=== PATIENT | male | born 1965 | race Caucasian/White ===

== ENCOUNTER 2023-10-05 03:58 | Emergency (ER) | payer OTHER, SELFPAY ==
[2023-10-05 04:07] VITALS: BP 153/119; PULSE 118; RESP 18; TEMP 36.7; O2SAT 97; BMI 24.4
--- NOTE | 2023-10-05 04:17 | XRR_ITS ---
PROCEDURE INFORMATION: Exam: XR Chest Exam date and time: 10/05/2023 4:22 AM Age: 58 years old Clinical indication: Chest wall pain; Additional info: Cxp TECHNIQUE: Imaging protocol: Radiologic exam of the chest. Views: 1 view. COMPARISON: No relevant prior studies available. FINDINGS: Lungs: Unremarkable. No consolidation. Pleural spaces: Unremarkable. No pleural effusion. No pneumothorax. Heart/Mediastinum: Unremarkable. No cardiomegaly. Bones/joints: Unremarkable. XR/XR chest 1V portable [id number] IMPRESSION: No acute cardiopulmonary findings.
--- NOTE | 2023-10-05 04:18 | ECG_ITS ---
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 Measurements Intervals Pratt Rate: 104 P: 61 OK: 135 QRS: 25 QRSD: 85 T: 39 QT: 325 QTc: 428 Interpretive Statements SINUS TACHYCARDIA MODERATE ST DEPRESSION [0.05+ mV ST DEPRESSION] No previous ECG available for comparison Electronically Signed On 10-05-2023 15:45:49 OPERATOR RECEPTIONIST by Vic Yates M.D. [id number]
[2023-10-05] MEDS: lidocaine 2% viscous 15 ML, aluminum-mag hydrox-simethicon 30 ML, sucralfate oral liq 1 GM PO (04:21)
[2023-10-05 04:32] LABS: Basophils # 0.1 10^3/uL (0.0-0.1); Basophils % 0.7 %; Eosinophils # 0.2 10^3/uL (0.0-0.8); Eosinophils % 2.1 %; Hematocrit 48.7 % (37-53); Lymphocytes # 2.7 10^3/uL (0.8-4.8); Lymphocytes % 31.9 %; Mean Corpuscular HGB Conc 34.3 g/dL (30-55); Mean Corpuscular Hemoglobin 30.4 pg (27-33); Mean Corpuscular Volume 88.7 fl (82-101); Mean Platelet Volume 10.4 fL (7.4-10.4); Monocytes # 0.8 10^3/uL (0.2-0.9); Monocytes % 9.6 %; Neutrophils # 4.69 10^3/uL (1.8-7.7); Neutrophils % 55.3 %; Nucleated Red Blood Cells % 0 %; Platelet Count 209 10^3/cmm (157-399); Red Blood Count 5.49 10^6/uL (3.85-5.65); Red Cell Distribution Width 12.5 % (12.1-15.1); White Blood Count 8.47 10^3/uL (3.29-11.43)
[2023-10-05 04:42] LABS: INR 0.86 (0.8-1.2)
[2023-10-05 04:43] LABS: Partial Thromboplastin Time 26.3 SECONDS (23.9-36.7)
[2023-10-05 04:49] LABS: Troponin(5th) Baseline < 6 ng/L (0-15)
[2023-10-05 04:51] LABS: Anion Gap 13.5 (5-19); Aspartate Amino Transferase 22 U/L (0-40); Blood Urea Nitrogen 17 mg/dL (8-23); Calcium 8.9 mg/dL (8.5-10.5); Carbon Dioxide 27 mmol/L (22-29); Chloride 103 mmol/L (98-107); Creatinine Clr Calc Pharmacy 73.3507; Glomerular Filtration Rate 61.8 mL/min (90-130); Glucose 197 mg/dL (65-115); Osmolality Calculated 297 mOsm/kg (285-295); Potassium 3.5 mmol/L (3.5-5.1); Sodium 140 mmol/L (136-145); Total Bilirubin 0.4 mg/dL (0.15-1.2); Total Protein 7.1 g/dL (6.6-8.7)
[2023-10-05] MEDS: aspirin 81 mg Chew Tablet 324 MG PO (04:55)
[2023-10-05 05:01] LABS: Alanine Aminotransferase 45 U/L (0-41); Albumin Level 4.1 g/dL (3.5-5.2); Alkaline Phosphatase 105 U/L (40-130); NT Pro B Type Natriuretic Pept < 36 pg/mL (0-125)
[2023-10-05 05:17] VITALS: BP 151/96; PULSE 96; RESP 16; O2SAT 93
--- NOTE | 2023-10-05 05:40 | ED_ITS ---
HPI - General Adult 2 General: Chief complaint: General Medical Stated complaint: acid reflux begining to choke Time Seen by Provider: 10/05/23 04:17 History of Present Illness: 58-year-old male presents to the emergen cy department with complaints of burning substernal chest pain. He states that he did not take his esomeprazole for 2 days and ate a greasy cheeseburger before laying down to go to sleep. He states that he started having chest discomfort that caused him to jar himself awake he states he has a stress test yearly as his father at 33 years old from a possible heart attack. He states that he has had episodes in the past where he felt like he was having heart attack and it was determined to be anxiety at that time. He denies shortness of breath, dizziness or lightheaded feeling. He states he does feel like his heart is racing at present. Associated symptoms: Reports chest pain and palpitations Review of Systems 2 General: Reports: 10 or more systems reviewed and unremarkable except in HPI and below Card: Reports: chest pain and palpitations GI: Reports: heartburn Physical Exam 2 Narrative: EXAM NARRATIVE: Constitutional: the patient appears well nourished and of normal development. Vital signs as documented. No acute distress at present. Alert and oriented-to person, place, time and situation. Head, eyes, ears, nose, mouth, throat: Normocephalic, atraumatic. Pupils-equal, round, reactive to light. No scleral icterus. Normal-appearing external ears. Normal appearing nasal turbinates, no drainage. No obvious oral lesions, posterior oropharynx without erythema or exudates. Neck: Supple, trachea is midline, no lymphadenopathy, no jugular venous distension, thyromegaly, or carotid bruits. Carotid upstrokes are brisk bilaterally. Lungs: clear to auscultation to all lung velásquez. Symmetrical rise and fall of chest, no obvious signs of increased work of breathing at present. Cardiac: Sinus tachycardia, positive S1, S2. No murmurs, rubs or gallops that I can appreciate Abdomen: Soft, non-tender to palpation, normal active bowel sounds to all quadrants. No palpable masses, no organomegaly and abdominal bruits. Extremities: 2+ pulses in the upper extremities that are equal bilaterally, 2+ pulses in the lower extremities that are equal bilaterally. Non-edematous. Moves all extremities well, sensation to all extremities are noted. Skin: Warm, dry, intact. Course 2 Vital Signs: Vital signs: Vital Signs Temperature 98.1 F 10/05/23 04:07 Pulse Rate 94 10/05/23 06:31 Respiratory Rate 16 10/05/23 06:31 Blood Pressure 159/99 10/05/23 06:31 Pulse Oximetry 94 10/05/23 06:31 Oxygen Delivery Me thod Room Air 10/05/23 04:07 [facility] - General Adult Medical Decision Making Physical exam completed and documented, I will obtain serial cardiac enzymes, serial twelve-lead EKGs, chest x-ray, CBC, CMP, urinalysis, B-type natriuretic peptide, PT/PTT/INR, and a chest x-ray. I will provide cardiac dose aspirin and nitroglycerin administration if indicated. I will also provide a GI cocktail to assist in determining his differential diagnosis to include GERD, NSTEMI, anxiety, cardiac arrhythmia. Differential Diagnosis GERD, NSTEMI, anxiety, cardiac arrhythmia Lab Data I reviewed the patient's lab results. 10/05/23 04:26 10/05/23 04:26 Radiology Impressions Chest X-Ray 10/05/23 04:17 IMPRESSION: No acute cardiopulmonary findings. Laboratory Results WBC 8.47 10^3/uL (3.29-11.43) 10/05/23 04:26 RBC 5.49 10^6/uL (3.85-5.65) 10/05/23 04:26 Hgb 16.70 g/dL (11.27-16.99) 10/05/23 04:26 Hct 48.7 % (37-53) 10/05/23 04:26 MCV 88.7 fl (82-101) 10/05/23 04:26 MCH 30.4 pg (27-33) 10/05/23 04:26 MCHC 34.3 g/dL (30-55) 10/05/23 04:26 RDW 12.5 % (12.1-15.1) 10/05/23 04:26 Plt Count 209 10^3/cmm (157-399) 10/05/23 04:26 MPV 10.4 fL (7.4-10.4) 10/05/23 04:26 Neut % (Auto) 55.3 % 10/05/23 04:26 Lymph % (Auto) 31.9 % 10/05/23 04:26 Stearns % (Auto) 9.6 % 10/05/23 04:26 Eos % (Auto) 2.1 % 10/05/23 04:26 Baso % (Auto) 0.7 % 10/05/23 04:26 Neut # (Auto) 4.69 10^3/uL (1.8-7.7) 10/05/23 04:26 Lymph # (Auto) 2.7 10^3/uL (0.8-4.8) 10/05/23 04:26 Stearns # (Auto) 0.8 10^3/uL (0.2-0.9) 10/05/23 04:26 Eos # (Auto) 0.2 10^3/uL (0.0-0.8) 10/05/23 04:26 Baso # (Auto) 0.1 10^3/uL (0.0-0.1) 10/05/23 04:26 Nucleated RBC % (auto) 0 % 10/05/23 04: Nucleated RBCs # 0.0 /100WBC 10/05/23 04:26 PT 11.90 SECONDS (12.1-14.9) L 10/05/23 04:26 INR 0.86 (0.8-1.2) 10/05/23 04:26 APTT 26.3 SECONDS (23.9-36.7) 10/05/23 04:26 Sodium 140 mmol/L (136-145) 10/05/23 04:26 Potassium 3.5 mmol/L (3.5-5.1) 10/05/23 04:26 Chloride 103 mmol/L (98-107) 10/05/23 04:26 Carbon Dioxide 27 mmol/L (22-29) 10/05/23 04:26 Anion Gap 13.5 (5-19) 10/05/23 04:26 BUN 17 mg/dL (8-23) 10/05/23 04:26 Creatinine 1.2 mg/dL (0.7-1.2) 10/05/23 04:26 GFR Calculation 61.8 mL/min (90-130) L 10/05/23 04:26 Glucose 197 mg/dL (65-115) H 10/05/23 04:26 Calculated Osmolality 297 mOsm/kg (285-295) H 10/05/23 04:26 Calcium 8.9 mg/dL (8.5-10.5) 10/05/23 04:26 Total Bilirubin 0.4 mg/dL (0.15-1.2) 10/05/23 04:26 AST 22 U/L (0-40) 10/05/23 04:26 ALT 45 U/L (0-41) H 10/05/23 04:26 Alkaline Phosphatase 105 U/L (40-130) 10/05/23 04:26 Troponin T Baseline < 6 ng/L (0-15) 10/05/23 04:26 Troponin T 120 Minute 7.35 ng/L (0-15) 10/05/23 06:35 Delta Troponin T 1.34570 ABS# (0-10) 10/05/23 06:35 NT-Pro-B Natriuret Pep < 36 pg/mL (0-125) 10/05/23 04:26 Total Protein 7.1 g/dL (6.6-8.7) 10/05/23 04:26 Albumin 4.1 g/dL (3.5-5.2) 10/05/23 04:26 Globulin 3.0 g/dL (1.3-4.6) 10/05/23 04:26 All radiology interpretation(s) finalized by discharge EKG Data EKG 1: Interpretation: Twelve-lead EKG obtained at 412 and reviewed at 412 demonstrates sinus tachycardia with a ventricular rate of 104 bpm, NJ interval 135, QRS duration 85, QT 325, QTc 385. There is significant ST depression in lead V3, V4, V5, and V6. There is also significant ST depression in lead I and lead II. Computer generated interpretation: Chest X-Ray 10/05/23 04:17 IMPRESSION: No acute cardiopulmonary findings. Discharge Plan Discharge Patient Disposition: Home Clinical Impression: Atypical chest pain, Chest pain due to GERD Condition: Stable Prescriptions: No Action omeprazole 20 mg capsule,delayed release(DR/EC) 20 mg PO BID Discharge Orders: Discharge ED (Routine); Ordered 10/05/23 Ordered By: Torsten Mcneil Discharge Diet: Usual diet Discharge Activity: Resume usual activity Patient Instructions: Opioid Safety, Pain Management Coding Level of Care Code ED Mangle Catcher for Chg Ronnell
[2023-10-05 05:57] VITALS: BP 151/96; PULSE 107; RESP 16; O2SAT 93
[2023-10-05 06:31] VITALS: BP 159/99; PULSE 94; RESP 16; O2SAT 94
[2023-10-05 06:57] LABS: Troponin 5 2HR 7.35 ng/L (0-15); Troponin 5 2HR Delta 1.35001 ABS# (0-10)
== END 2023-10-05 08:03 | disposition home or self-care (01) ==
PROVIDERS: Emergency Provider Internal Medicine
DX: R07.89 Other chest pain (principal); K21.9 Gastro-esophageal reflux disease without esophagitis
CPT/HCPCS: 36415; 71045; 80053; 83880; 84484; 85025; 85610; 85730; 93005; 99285